=== PATIENT | female | born 1995 | race Hispanic/Latino ===

== ENCOUNTER 2022-12-21 18:58 | Emergency (ER) | payer OTHER ==
[2022-12-21 20:32] LABS: ALT (SGPT) 30 U/L (8-55); AST (SGOT) 18 U/L (5-34); Albumin 4.1 g/dL (3.5-5.0); Alkaline Phosphatase 63 U/L (40-110); Anion Gap 14 mmol/L (10-20); BUN (Urea Nitrogen) 7 mg/dL (7.0-18.7); Bilirubin, Total 0.5 mg/dL (0.2-1.2); CRP (Inflammatory) 2.85 mg/dL (= or < 0.5); Calc. Creatinine Clearance 0 mL/min (70-130); Calcium 9.8 mg/dL (7.8-10.44); Carbon Dioxide 24 mmol/L (22-29); Chloride 102 mmol/L (98-107); Estimated GFR 110; Globulin 4.2 g/dL (2.4-3.5); Glucose 102 mg/dL (70-105); Potassium 4.1 mmol/L (3.5-5.1); Protein, Total 8.3 g/dL (6.0-8.3); Sodium 136 mmol/L (136-145)
[2022-12-21 20:46] LABS: #Monocytes 0.8 10x3/uL (0.0-1.1); #Neutrophils 13.4 10x3/uL (1.5-8.4); %Basophils 0.2 % (0.0-2.0); %Eosinophils 0.1 % (0.0-6.0); %Lymphocytes 11.1 % (18.0-47.0); %Monocytes 4.8 % (0.0-10.0); %Neutrophils 83.4 % (40.0-75.0); Hemoglobin 14.7 g/dL (12.0-15.5); Mean Corpuscular HGB CONC 34.2 g/dL (32.0-36.0); Mean Corpuscular Volume 87.8 fl (81.6-98.3); Mean Platelet Volume 9.4 fl (7.4-10.4); Platelet Count 306 10x3/uL (150-450); RBC Distribution Width 12.9 % (11.5-14.5); White Blood Cell (WBC) Count 16.1 10x3/uL (3.5-10.5)
[2022-12-21] MEDS ORDERED: Dexamethasone 10 MG/ML VIAL ONE (22:12)
[2022-12-21] MEDS ORDERED: Vancomycin HCl 500 MG VIAL ONE (22:13)
[2022-12-21] MEDS ORDERED: Vancomycin 1 GM VIAL ONE (22:13)
[2022-12-21] MEDS ORDERED: cefTRIAXone (ROCEPHIN) 2 GM VIAL ONE (22:14)
== END 2022-12-21 23:48 | disposition left against medical advice (07) ==
LOC: CSHERS 18:58
DX: J02.9 Acute pharyngitis, unspecified (principal); A41.9 Sepsis, unspecified organism; D72.829 Elevated white blood cell count, unspecified; Z20.822 Contact with and (suspected) exposure to COVID-19
CPT/HCPCS: 36415; 80053; 82550; 83605; 85025; 85652; 86140; 87040; 87430; 87804; 93005; 96365; 96375; J0696; J1100; J3370; U0003; U0005

== ENCOUNTER 2025-08-02 13:53 | Outpatient (CLI) | payer OTHER, SELFPAY | END 2025-08-02 13:54 | disposition home or self-care (01) | LOC: CSHMAMMO 13:53 | PROVIDERS: ATTEND Physician Assistant | DX: N64.4 Mastodynia (principal) | CPT/HCPCS: 77066; G0279 ==